=== PATIENT | male | born 1965 | race Caucasian/White ===

== ENCOUNTER 2021-09-10 08:44 | Observation (INO) | payer OTHER ==
[2021-09-10 09:55] LABS: Basophils % (Auto) 0.5 % (0.0-1.8); Eosinophils # (Auto) 0.1 K/mm3 (0.0-0.4); Eosinophils % (Auto) 0.7 % (0.0-4.3); Hematocrit 47.3 % (35.5-45.6); Hemoglobin 15.3 gm/dl (11.8-15.2); Lymphocytes # (Auto) 1.9 K/mm3 (1.2-5.4); Lymphocytes % (Auto) 21.6 % (13.4-35.0); Mean Corpuscular HGB Conc 32 % (32-34); Mean Corpuscular Volume 86 fl (84-94); Monocytes # (Auto) 0.5 K/mm3 (0.0-0.8); Monocytes % (Auto) 5.6 % (0.0-7.3); Platelet Count 225 K/mm3 (140-440); Red Blood Count 5.49 M/mm3 (3.65-5.03); Red Cell Distribution Width 13.8 % (13.2-15.2)
[2021-09-10] MEDS ORDERED: SODIUM CHLORIDE 0.9% 500 ML 500 ML IV SCH (10:00)
[2021-09-10 10:10] LABS: BUN/Creatinine Ratio 18; Blood Urea Nitrogen 14 mg/dL (9-20); Calcium 9.2 mg/dL (8.4-10.2); Hemolysis Index 9; INR 0.92 (0.87-1.13)
[2021-09-10] MEDS ORDERED: HEPARIN/NS 5000 UNIT/500ML 1,000 ML IR ONE (10:15)
[2021-09-10] MEDS ORDERED: LIDOCAINE (2%) 20 MG/1 ML VIAL 20 ML MDV INFILTRATI ONE (10:16)
[2021-09-10] MEDS ORDERED: HEPARIN 10,000 UNITS/10 ML VIAL ONE ×2 (10:16→12:01)
[2021-09-10] MEDS ORDERED: VERAPAMIL 5 MG/2 ML INJ ONE (10:16)
[2021-09-10] MEDS ORDERED: NITROGLYCERIN SYRINGE 3 ML ONE (10:16)
[2021-09-10] MEDS ORDERED: MIDAZOLAM 2 MG/2 ML INJ ONE (10:16)
[2021-09-10] MEDS ORDERED: fentaNYL 100 MCG/2 ML INJ ONE (10:16)
[2021-09-10] MEDS ORDERED: MIDAZOLAM 2 MG/2 ML INJ IV ONE ×2 (11:30→11:52)
[2021-09-10] MEDS ORDERED: fentaNYL 100 MCG/2 ML INJ IV ONE ×2 (11:31→11:52)
[2021-09-10] MEDS ORDERED: LIDOCAINE 1%/EPINEPHRINE 1:100,000 VIAL (20 ML) INFILTRATI ONE (11:34)
[2021-09-10] MEDS ORDERED: LIDOCAINE (1%) 10 MG/1 ML VIAL 20 ML MDV ONE (11:42)
[2021-09-10] MEDS ORDERED: LIDOCAINE (1%) 10 MG/1 ML VIAL 20 ML MDV INFILTRATI ONE (11:45)
[2021-09-10] MEDS ORDERED: HEPARIN 10,000 UNITS/10 ML VIAL IV ONE (11:58)
[2021-09-10] MEDS ORDERED: NITROGLYCERIN 600 MCG/3 ML SYRINGE UD ONE ×2 (12:15→12:17)
[2021-09-10] MEDS ORDERED: PRASUGREL 10 MG PO ONE (12:30)
[2021-09-10] MEDS ORDERED: PRASUGREL 10 MG TAB PO ONE (12:42)
--- NOTE | 2021-09-10 12:58 | Cardiac Catherization Report ---
DATE OF PROCEDURE: 09/10/2021 CARDIAC CATHETERIZATION REFERRING PHYSICIANS: Dr. Boo and Dr. Corinne Haney. INDICATIONS FOR PROCEDURE: The patient is here, was referred for left heart catheterization due to markedly positive exercise stress test, here for cardiac catheterization. Risks, benefits, potential alternatives explained at length prior to informed consent. PROCEDURE IN DETAIL: The patient was brought to the mechanical laboratory technician in a postabsorptive state, prepped and draped in sterile fashion. Sergey's test in right hand was unremarkable, but we were not able to access the right radial as we were not last time. Right groin approach was taken, 6-Yi sheath placed. A 5-Yi JL3.5 guide used to engage the left main without difficulty. Left coronary angiography was performed in multiple projections. Next, catheter exchanged for JR4, which was used to cross the aortic valve under fluoroscopic guidance. Left ventriculography performed in 30-degree AFGHAN projections via hand injections, catheter flushed. Manual pullback performed with continuous pressure monitoring. Catheter used to engage the right coronary. No dampening or ventricularization. Cineangiography performed in all projections. Next, catheter used to engage the right coronary. No dampening or ventricularization. Cineangiography performed in multiple projections. DATA: Aortic pressure is 130/70, LV pressure is 130, LVEDP of 15 mmHg. Left ventriculography reveals normal systolic performance, estimated ejection fraction of 55-60%. Right coronary is a moderate sized vessel, courses AV groove, distally bifurcates in the posterior descending and posterolateral branches. No discrete stenoses noted. In the right coronary, possibly 20% proximal, but no significant dampening and good backflow. The left main without significant disease, bifurcates into left anterior descending and left circumflex. The left circumflex is without significant disease. The LAD has what appears to be an ulcerated 80-90% stenosis just distal to the previous existing stent, 25% stenosis proximally. I believe this is the culprit lesion and thus we proceed with PCI given markedly abnormal stress test. Heparin was given. Abnormal ACT is confirmed. The patient loaded with aspirin and Effient. A JL3.5 guide used to engage left main without difficulty. We used a [place] wire to cross the lesion without difficulty. At this point, the patient developed spasm proximally, wonder if spasm is part of what some of his issues are. We proceed with PCI with overlapping drug-eluting stent from the previous stent placed at [facility] some 3 years ago. We used a 3.0 x 8 drug-eluting stent in overlapping fashion. The patient initially had JACIEL 2 flow, post-stent had JACIEL 3 flow. Intracoronary nitroglycerin was given and the artery pumps up significantly. There is no significant proximal lesion. Intravascular ultrasound was performed, which reveals a well opposed, well expanded stent. A new stent and previous stent proximal LAD with mild concentric plaque. No significant obstructive disease. Left main without any obstructive disease as well. CONCLUSIONS: 1. Severe single vessel coronary artery disease with a hazy 80-90% mid LAD stenosis. Successful IVUS-guided PCI with placement of drug-eluting stent (Saúl 3.0 x 8) with excellent final angiographic result. Mild nonobstructive disease in the right coronary as well as the proximal LAD. Left main without significant disease. 2. Preserved LV function, estimated ejection fraction 55-60%. 3. No evidence of aortic stenosis. At this point, consider adding Ranexa and Imdur. 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 He is clinically doing very well at this point. We will have him follow up with Dr. Boo in the office. Results of procedure were explained in length to the patient and his daughter who is a nurse at [facility]. TID: [id number] RECEIPT: [id number] AIRAM/JOB
--- NOTE | 2021-09-10 13:14 | Short Stay Summary ---
Short Stay Documentation Date of service: 09/10/21 - History H&P: obtained from office - Allergies and Medications Current Medications: Allergies No Known Allergies Allergy (Unverified 09/10/21 08:45) Home Medications Medication Instructions Recorded Confirmed Last Taken Type Aspirin EC [Halfprin EC] 81 mg PO QDAY 09/10/21 09/10/21 09/10/21 10:31 History Isosorbide Mononitrate [Isosorbide 60 mg PO DAILY 09/10/21 09/10/21 09/09/21 History Mononitrate ER] Metoprolol [Lopressor] 25 mg PO QDAY 09/10/21 09/10/21 09/09/21 History Rosuvastatin (Nf) [Crestor] 5 mg PO QHS 09/10/21 09/10/21 09/09/21 History Terbinafine (Nf) [LamiSIL] 250 mg PO QDAY 09/10/21 09/10/21 09/07/21 History metFORMIN [Glucophage] 500 mg PO BID 09/10/21 09/10/21 09/07/21 History Active Medications Sodium Chloride (Nacl 0.9% 500 Ml) 500 mls @ 50 mls/hr IV DIRECT LEO Stop: 09/10/21 20:00 - Brief post op/procedure progress note Date of procedure: 09/10/21 Pre-op diagnosis: Positive stress test Post-op diagnosis: other (CAD s/p PCI LAD) Anesthesia: local Estimated blood loss: minimal - Disposition Condition at discharge: Good Disposition: 01 HOME / SELF CARE / HOMELESS Short Stay Discharge Plan Activity: advance as tolerated Diet: low fat, low cholesterol, low salt Wound: keep clean and dry, per your surgeon's advice Follow up with: WALLY BOO MD [Staff Physician] - 7 Days (Patient has a follow-up appointment on 09/26/[address]21 at [address] Boo in our [place] location. Phone #[phone]) Prescriptions: Prasugrel HCl [Effient] 10 mg PO DAILY 30 Days #30 tablet Pantoprazole [Protonix] 40 mg PO QDAY 30 Days #30 tablet Ranolazine ER [Ranexa ER] 500 mg PO BID 30 Days tab.er.[email or web address]
[2021-09-10] MEDS ORDERED: ACETAMINOPHEN 325 MG TAB PO PRN (13:16)
[2021-09-10] MEDS ORDERED: HYDROcodone/ACETAMINOPHEN 5-325 MG TAB PO PRN (13:16)
[2021-09-10] MEDS: RANOLAZINE ER 500 MG TAB 12HR PO SCH (21:55)
[2021-09-11] MEDS ORDERED: ALUM-MAG HYDROXIDE-SIMETHICONE 200-200-20MG/5ML ORAL LIQD 30 ML PO ONE (05:48)
[2021-09-11 06:23] LABS: BUN/Creatinine Ratio 18; Blood Urea Nitrogen 14 mg/dL (9-20); Calcium 8.7 mg/dL (8.4-10.2); Hemolysis Index 45
[2021-09-11 07:02] LABS: Hematocrit 49.9 % (35.5-45.6); Hemoglobin 15.7 gm/dl (11.8-15.2); Mean Corpuscular HGB Conc 32 % (32-34); Mean Corpuscular Volume 91 fl (84-94); Platelet Count 202 K/mm3 (140-440); Red Cell Distribution Width 14.1 % (13.2-15.2)
[2021-09-11 08:53] VITALS: BP 148/91
--- NOTE | 2021-09-11 08:56 | XRay Report ---
CHEST 1 VIEW 09/11/2021 7:35 AM INDICATION / CLINICAL INFORMATION: post pci. COMPARISON: None available. FINDINGS: SUPPORT DEVICES: None. HEART / MEDIASTINUM: No significant abnormality. LUNGS / PLEURA: No significant pulmonary abnormality. No significant pleural effusion. No pneumothora x. ADDITIONAL FINDINGS: No significant additional findings. IMPRESSION: 1. No acute abnormality of the chest. Signer Name: Dontrell Maki MD Signed: 09/11/2021 8:51 AM Workstation Name: [employer]
[2021-09-11] MEDS ORDERED: PRASUGREL 10 MG TAB PO SCH (10:00)
[2021-09-11] MEDS ORDERED: ASPIRIN 81 MG TAB CHEW PO SCH (10:00)
[2021-09-11] MEDS ORDERED: METOPROLOL SUCCINATE XL 25 MG TAB PO SCH (10:00)
--- NOTE | 2021-09-11 10:32 | Event Note ---
Patient is seen and examined today. He is doing great. No chest pain. Apparently had one episode of chest tightness while laying flat last night. He he was given Maalox and this immediately resolved. During this episode his EKG was normal. His cardiac markers were also normal. His EKG this morning is normal. He has been very active walking around the room in the hallway without exertional chest pain. His procedure yesterday was uncomplicated as he underwent PCI of mid LAD. At this point I do believe he has a few things going on. First off he had a 90% stenosis in the LAD which was successfully intervened upon in the milieu of an abnormal stress test. His precedent chest pain was atypical and at rest. Patient actually exercised on a daily basis and had no chest pain. I believe his precedent chest pain given that it is only when supine and never with exertion may not have been due to a fixed epicardial coronary stenosis. It may very well be the case that patient has atypical gastroesophageal reflux causing his chest pain. The fact that his symptoms resolved entirely and immediately with the Maalox last night supports this further. Another option would be microvascular angina or Prinzmetal's angina/spasm. To this end we will start him on a proton pump inhibitor as well as Ranexa/Imdur. We will discussed with his daughter who is a nurse. Patient is clinically stable and doing well at this point. We will discharge later today. Right groin site looks good
--- NOTE | 2021-09-11 10:44 | Electrocardiograph Report ---
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
--- NOTE | 2021-09-11 10:45 | Electrocardiograph Report ---
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
[2021-09-11] MEDS: RANOLAZINE ER 500 MG TAB 12HR PO SCH (10:49)
--- NOTE | 2021-09-15 08:53 | Electrocardiograph Report ---
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
== END 2021-09-11 13:00 | disposition home or self-care (01) ==
LOC: CATHLABREC 08:44 → 4A 13:16
PROVIDERS: ADMIT Internal Medicine; ATTEND Internal Medicine
DX: I25.119 Atherosclerotic heart disease of native coronary artery with unspecified angina pectoris (principal); R94.39 Abnormal result of other cardiovascular function study; Z79.82 Long term (current) use of aspirin; Z79.84 Long term (current) use of oral hypoglycemic drugs
CPT/HCPCS: 36415; 71045; 80048; 84484; 85025; 85610; 92978; 93005; 93458; C1769; C1874; C1887; C1894; C9600; G0378; J1644; J1815; J2250; J3010; J3490; J7040; 92928; Q9967